=== PATIENT | male | born 2000 | race Two or more races ===

== ENCOUNTER 2022-02-02 22:07 | Emergency (ER) | payer OTHER ==
[2022-02-02] MEDS ORDERED: Diphtheria,Pertussis(Acell),Tetanus Vaccine 0.5 ML Syringe IM ONE (23:03)
== END 2022-02-02 23:38 | disposition home or self-care (01) ==
LOC: MW.ED 22:07
DX: S60.571A Other superficial bite of hand of right hand, initial encounter (principal); Z23 Encounter for immunization; W54.0XXA Bitten by dog, initial encounter
CPT/HCPCS: 90471; 90715; 99283